=== PATIENT | female | born 1965 | race Caucasian/White ===

== ENCOUNTER 2016-03-28 23:34 | Emergency (ER) | payer SELFPAY ==
[~2016-03-28] VITALS: Ht 170.2 cm; Wt 75.0 kg
[~2016-03-28 23:34] MED LIST: IBUP-238 PO; Z.0.NO CURRENT MEDS
[2016-03-28 23:36] VITALS: BP 142/90; PULSE 98; RESP 18; TEMP 98; O2SAT 96
--- NOTE | 2016-03-29 01:11 | PD ---
HPI Chief Complaint: Injury Time Seen by Provider: 01:09 Travel History International Travel<30 days: No Contact w/Intl Traveler<30days: No Traveled to known affect area: No History of Present Illness HPI Patient comes in for evaluation of right knee laceration. Patient states she was drinking celebrating the new year when she tripped and fell causing a laceration to the proximal leg near the knee. Patient denies any pain with this. Reports her tetanus shot is not up-to-date. Patient states she's been walking on it since and that she had walked outside to smoke a cigarette while in the waiting room. Patient denies any numbness or tingling. Patient had the laceration wrapped by paramedics prior to coming to the emergency department. Denies doing anything else for this. Family and patient denies any head trauma or loss of consciousness. [facility] Past Medical History Medical other: Yes (HEPTATIS C ) ?: Not Past Surgical History Surgical History: No Previous Surgery Social History Alcohol Use: Yes Tobacco Use: Yes Substance Use: Yes (marijuana, cocaine ) Allergies-Medications (Allergen,Severity, Reaction): Coded Allergies: Latex (Verified Allergy, Severe, RASH, 03/01/13) Uncoded Allergies: TYLENOL PRODUCTS (Adverse Reaction, Severe, POSITIVE HEP C, 07/27/09) Reported Meds & Prescriptions Reported Meds & Active Scripts Active No Active Prescriptions or Reported Medications Review of Systems ROS Limitations: Intoxication Except as stated in HPI: all other systems reviewed are Neg Physical Exam Exam Limitations: Intoxication Narrative GENERAL: Well-developed, overly nourished, in no acute distress, and non-ill appearing. SKIN: Warm and dry. Laceration noted the anterior proximal leg. HEAD: Atraumatic. Normocephalic. EYES: Pupils equal and round. EOMI. No scleral icterus. No injection or drainage. ENT: No nasal bleeding or discharge. Mucous membranes pink and moist. NECK: Trachea midline. Supple. No nuclear rigidity. CARDIOVASCULAR: Dorsal pulses 2+ and bilaterally. Capillary refill is 2 seconds. No pedal edema. RESPIRATORY: No accessory muscle use. No respiratory distress. MUSCULOSKELETAL: No obvious deformities. No clubbing. No cyanosis. No edema. Full range of motion. Knee: Negative patellar apprehension, varus and valgus maneuvers, anterior draw test, and Juancarlos test. Pulses equal BL distal to injury. Capillary refill less than 2 seconds distal to injury and equal BL. FROM distal to injury and equal BL. Strength distal to injury equal BL. NV intact distal to injury. Dorsal pulses equal BL. NEUROLOGICAL: Awake and alert. No obvious cranial nerve deficits. Motor grossly within normal limits. Slurred speech. PSYCHIATRIC: Appropriate mood and affect; insight and judgment normal. Data Data Last Documented VS Vital Signs Date Time Temp Pulse Resp B/P Pulse Ox O2 Delivery O2 Flow Rate FiO2 03/28/16 23:36 98.0 98 18 142/90 96 Room Air Orders Tetanus/Diphtheria Tox Adult (Tetanus/Di (03/29/16 01:15) Lidocaine 1% Inj (50 Ml) (Xylocaine 1% I (03/29/16 01:15) Knee, Complete (4vws) (03/29/16 ) [facility] Medical Decision Making Medical Screen Exam Complete: Yes Emergency Medical Condition: Yes Differential Diagnosis Fracture, contusion, abrasion, laceration, other Narrative Course The patient suffered laceration to the extremity. There was no evidence to suggest foreign bodies. Visual, tactile and radiographic exams were unremarkable without evidence of foreign body at this time. There was no evidence of neurovascular injury. The patient had a normal distal vascular exam , and had full normal motor and sensory exams. There was also no evidence or tendon injury, with normal distal full range of motions, flexion, extension, abduction, adduction and opponens. There was no evidence of local joint space involvement at this time. The patient was irrigated with copious sterile normal saline and primary repair was performed. Please see procedure note. The patient was given signs and symptom warnings for infection, such as increasing pain, redness, swelling, associated heat, pus or fever. The patient was warned of possible unseen foreign body and instructed to return immediately if signs or symptoms develop. The patient was given instructions for timely follow up and for removal. The patient agreed with plan of care. Patient in no obvious distress upon re-evaluation. All pertinent Radiology result(s) discussed with patient/family. Any questions/concerns in reference to patient diagnosis/condition discussed and clarified prior to patient's discharge. Reinforced sheer importance of close follow up with patient's primary physician or primary care clinic and to return here in for staple removal. Instructed patient to return to ED immediately, if symptoms return/ worsen. Pt showed understanding of above instructions. Further instructions and recommendations were detailed in discharge paperwork. Pt ambulated without difficulty out of ED at discharge. Procedures Procedure Narrative LACERATION REPAIR LOCATION: Proximal right leg LENGTH: Approximately 3 cm NUMBER OF STITCHES/GAURAV: 6 gaurav REPAIR: Verbal consent was obtained. The area of the laceration was cleaned and prepped. The laceration was infiltrated with aching without epi. The wound was copiously irrigated and explored without evidence of foreign body, bony involvement, ligament injury, tendon injury, or neurovascular injury. The wound was closed using gaurav. This was a single layer repair. A sterile dressing was applied by nurse. The patient was advised to keep the affected area as clean and dry as possible using soap and water. There were no complications. Patient tolerated the procedure well. Diagnosis Primary Impression: Laceration Patient Instructions: General Instructions, Laceration (ED), Staple Care (ED) Additional Instructions: Follow-up with your primary care physician or return here in 2-3 weeks for staple removal. Keep wound dry and clean as possible using soap and water. Use Neosporin to promote healing. Do not soak or submerge wound. Return to the emergency department if symptoms get worse. Scripts No Active Prescriptions or Reported Meds Disposition: 01 DISCHARGE HOME Condition: Stable Corona Bonilla Mar 29, 2016 01:11
[2016-03-29] MEDS ORDERED: LIDOCAINE HCL 1% 50 ML VIAL INFIL ONE (01:15)
[2016-03-29] MEDS ORDERED: TETANUS/DIPHTHERIA TOXOID ADULT 0.5 ML VIAL IM ONE (01:15)
--- NOTE | 2016-03-29 02:29 | RADRPT ---
EXAM DATE/TIME: 03/29/2016 02:18 [facility] COMPARISON: No previous studies available for comparison. INDICATIONS : Right knee pain post fall. MEDICAL HISTORY : None. SURGICAL HISTORY : None. ENCOUNTER: Initial ACUITY: 1 day PAIN SCORE: 2/10 LOCATION: Right anterior knee. FINDINGS: Four view examination of the right knee demonstrates no evidence of fracture or dislocation. Bony mi neralization is normal. The articular surfaces are intact. The suprapatellar soft tissues have a no rmal configuration. CONCLUSION: Unremarkable examination of the right knee. Small metallic foreign body overlying the anterior media l knee at the level of the upper pole of the patella. Phani Rosuseau MD on March 29, 2016 at 2:26 Board Certified Radiologist. This report was verified electronically.
== END 2016-03-29 03:24 | disposition home or self-care (01) ==
LOC: NEPB 23:34
DX: S81.011A Laceration without foreign body, right knee, initial encounter (principal); Z23 Encounter for immunization; W01.10XA Fall on same level from slipping, tripping and stumbling with subsequent striking against unspecified object, initial encounter; Y93.89 Activity, other specified; Y92.9 Unspecified place or not applicable; Z72.0 Tobacco use
CPT/HCPCS: 12002; 73564; 90471; 90714

== ENCOUNTER 2016-04-12 08:27 | Emergency (ER) | payer SELFPAY ==
[~2016-04-12] VITALS: Ht 172.7 cm; Wt 85.0 kg
[2016-04-12 08:28] VITALS: BP 133/82; PULSE 97; RESP 15; TEMP 98.1; O2SAT 98
--- NOTE | 2016-04-12 08:46 | PD ---
HPI Chief Complaint: Wound/Suture/Staple Re-Check Time Seen by Provider: 08:45 Travel History International Travel<30 days: No Contact w/Intl Traveler<30days: No Traveled to known affect area: No History of Present Illness HPI 50-year-old female presents to the emergency department to have gaurav removed. Patient was seen in our emergency department 2 weeks ago status post trip and fall onto her right knee sustaining a knee laceration. The laceration was repaired using gaurav. Patient states she has been keeping the area clean. Denies any fever, chills, redness, drainage or swelling. No other complaints. PFSH Past Medical History Medical History: Denies Significant Hx ?: Not LMP: 5 YRS AGO Social History Alcohol Use: Yes Tobacco Use: Yes Substance Use: Yes (marijuana, cocaine ) Allergies-Medications (Allergen,Severity, Reaction): Coded Allergies: Latex (Verified Allergy, Severe, RASH, 04/12/16) Uncoded Allergies: TYLENOL PRODUCTS (Adverse Reaction, Severe, POSITIVE HEP C, 07/27/09) Reported Meds & Prescriptions Reported Meds & Active Scripts Active No Active Prescriptions or Reported Medications Review of Systems Except as stated in HPI: all other systems reviewed are Neg Physical Exam Narrative GENERAL: Well-nourished and well-developed pleasant patient in no acute distress who is nontoxic appearing. SKIN: Warm and dry. Laceration to right anterior knee with [address], wound healed well. No surrounding erythema or warmth. No discharge or drainage. HEAD: Normocephalic and atraumatic. MUSCULOSKELETAL: No obvious deformities, swelling, cyanosis, or ecchymosis is present throughout the upper and lower extremities. Patient has full range of motion without any signs of neurovascular compromise. NEUROLOGICAL: Awake, alert, and oriented. Normal speech and gait. Cranial nerves are grossly intact. Data Data Last Documented VS Vital Signs Date Time Temp Pulse Resp B/P Pulse Ox O2 Delivery O2 Flow Rate FiO2 04/12/16 08:28 98.1 97 15 133/82 98 MDM Medical Decision Making Medical Screen Exam Complete: Yes Emergency Medical Condition: Yes Differential Diagnosis Staple removal versus wound recheck versus wound care Narrative Course 50-year-old female presents to the emergency department for evaluation of right knee staple removal. Patient is afebrile, vital signs are stable. The patient has [address] in the wound has healed well with no signs of infection. I removed 6 gaurav without incident, patient tolerated well. Discussed proper wound care techniques. Patient is stable for discharge. Diagnosis Primary Impression: Removal of gaurav Referrals: Primary Care Physician Patient Instructions: Acute Wound Care (ED), General Instructions Additional Instructions: Keep area clean and dry. Follow-up with your Primary Care Physician as needed. Return to the ED for any acute worsening of symptoms. Med/Other Pt SpecificInfo: No Change to Meds Scripts No Active Prescriptions or Reported Meds Disposition: 01 DISCHARGE HOME Condition: Stable Rola Brody Apr 12, 2016 08:46
== END 2016-04-12 09:40 | disposition home or self-care (01) ==
LOC: NEPB 08:27
DX: S81.011D Laceration without foreign body, right knee, subsequent encounter (principal); W01.0XXD Fall on same level from slipping, tripping and stumbling without subsequent striking against object, subsequent encounter; F12.90 Cannabis use, unspecified, uncomplicated; F14.90 Cocaine use, unspecified, uncomplicated; Z48.02 Encounter for removal of sutures; Z72.0 Tobacco use
CPT/HCPCS: 99281